=== PATIENT | male | born 1970 | race Caucasian/White ===

== ENCOUNTER 2019-10-26 11:27 | Emergency (ER) | payer OTHER ==
[2019-10-26] MEDS ORDERED: MORPHINE SULFATE 10 MG/ML INJ IV ONE (11:40)
[2019-10-26] MEDS ORDERED: ONDANSETRON HCL INJ/PF 4 MG/2 ML SDV IV ONE (11:40)
--- NOTE | 2019-10-26 11:43 | ER Document Report ---
ED Medical Screen (RME) - General Chief Complaint: Back Pain Stated Complaint: LIGHTHEADED,NAUSEA Time Seen by Provider: 10/26/19 11:40 Notes: Patient is a 48-year-old male history of colorectal cancer with a colostomy bag presents to the emergency department for left flank and left upper quadrant pain. States this started approximately 5:00 this morning. Patient voices he is also very nauseated. States he has no history of kidney stones, is denying any dysuria lower abdominal pain or testicular pain. GENERAL: Alert, interacts well. ABDOMEN: Soft, slight tenderness left upper quadrant. Colostomy bag right lower quadrant. Non-distended. Bowel sounds present in all 4 quadrants. BACK: no cervical, thoracic, lumbar midline tenderness. No saddle anesthesia, normal distal neurovascular exam. Left CVA tenderness noted. I have greeted and performed a rapid initial assessment of this patient. A comprehensive ED assessment and evaluation of the patient, analysis of test results and completion of the medical decision making process will be conducted by additional ED providers. I have specifically instructed the patient or family members with the patient to immediately return to any nursing staff should anything change in the patient's condition or with their chief complaint. This medical record was dictated with voice recognizing software. There may be grammatical, syntax errors that are unintended. TRAVEL OUTSIDE OF THE [place] IN LAST 30 DAYS: No - Related Data Allergies/Adverse Reactions: No Known Allergies Allergy (Verified 10/26/19 11:36) Physical Exam - Vital signs Vitals: Pulse BP Pulse Ox 61 105/60 100 10/26/19 11:31 10/26/19 11:31 10/26/19 11:31 Course - Vital Signs Vital signs: Temp Pulse Resp BP Pulse Ox 61 105/60 100 10/26/19 11:31 10/26/19 11:31 10/26/19 11:31
--- NOTE | 2019-10-26 12:18 | ER Document Report ---
ED GI/ - General Chief Complaint: Back Pain Stated Complaint: LIGHTHEADED,NAUSEA Time Seen by Provider: 10/26/19 11:40 Primary Care Provider: HUGO HOUGH MD [Primary Care Provider] - Follow up as needed Notes: Patient is a 48-year-old male with a history of colorectal cancer who presents to the emergency department with a chief complaint of left flank and left upper quadrant pain. Patient reports this was an acute onset around 5 AM this morning. Patient reports he does have a ileostomy bag due to colorectal cancer. Reports that he did finish chemo on October 13. Patient reports extreme nausea without vomiting. Patient reports he is not having any urinary symptoms. Patient denies fever. Patient states that the left upper quadrant pain is nonradiating. Patient states that he has not had any pain like this in the past. TRAVEL OUTSIDE OF THE [place] IN LAST 30 DAYS: No - Related Data Allergies/Adverse Reactions: No Known Allergies Allergy (Verified 10/26/19 11:36) Past Medical History - General Information source: Patient, Relative - Social History Smoking Status: Never Smoker Lives with: Spouse/Significant other Family History: None Patient has suicidal ideation: No Patient has homicidal ideation: No - Past Medical History Cardiac Medical History: Reports: None Pulmonary Medical History: Reports: None EENT Medical History: Reports: None Neurological Medical History: Reports: None Endocrine Medical History: Reports: None Renal/ Medical History: Reports: None Malignancy Medical History: Reports Other - Colorectal CA - finished Chemo tx. October 13 GI Medical History: Reports: None Musculoskeletal Medical History: Reports None Skin Medical History: Reports None Psychiatric Medical History: Reports: None Traumatic Medical History: Reports: None Infectious Medical History: Reports: None Past Surgical History: Reports: Other - Ileostomy RLQ Review of Systems - Review of Systems Constitutional: No symptoms reported EENT: No symptoms reported Cardiovascular: No symptoms reported Respiratory: No symptoms reported Gastrointestinal: See HPI Genitourinary: No symptoms reported Male Genitourinary: No symptoms reported Musculoskeletal: No symptoms reported Skin: No symptoms reported Hematologic/Lymphatic: No symptoms reported Neurological/Psychological: No symptoms reported Physical Exam - Vital signs Vitals: Pulse BP Pulse Ox 61 105/60 100 10/26/19 11:31 10/26/19 11:31 10/26/19 11:31 - Notes Notes: GENERAL: Ill-appearing, acute distress r/t pain as reported by patient. HEAD: Atraumatic, normocephalic. EYES: Pupils equal round and reactive to light, extraocular movements intact, s clera anicteric, conjunctiva are normal. ENT: Nares patent, oropharynx clear without exudates. Moist mucous membranes. NECK: Normal range of motion, supple without lymphadenopathy or JVD. LUNGS: Breath sounds clear to auscultation bilaterally and equal. No wheezes rales or rhonchi. HEART: Regular rate and rhythm without murmurs, rubs or gallops. ABDOMEN: Soft, LUQ tenderness, normoactive bowel sounds, Ileostomy located in the RLQ. No guarding, no rebound. No masses appreciated. BACK: No cervical, thoracic, lumbar midline tenderness. No saddle anesthesia, normal distal neurovascular exam. GENITOURINARY: Deferred. EXTREMITIES: Normal range of motion, no pitting or edema. No clubbing or c yanosis. NEUROLOGICAL: Cranial nerves II through XII grossly intact. Normal speech. PSYCH: Normal mood, normal affect. SKIN: Warm, Dry, normal turgor, no rashes or lesions noted. Course - Re-evaluation Re-evalutation: 10/26/19 12:17 Appropriate lab work has been ordered in triage. Pain and nausea medications also given. Due to the patient's complaint of left upper quadrant pain and left flank pain will obtain a CT abdomen and pelvis with IV contrast. reports that the patient's primary care physician and oncologist is with [facility]. 10/26/19 14:27 Upon reevaluation patient is resting comfortably in the supine position on the stretcher. Patient reports that the morphine did help with his discomfort and he is not currently having any pain. Patient states he has not been able to urinate as he has not had anything to eat or drink since 5 AM. We will give a dose of IV fluids. Results of the CT scan are pending. 10/26/19 14:[address] the abdomen did show that he had a tiny calculus in the left UPJ. Will give p.o. potassium for his hypokalemia. Patient reports he does have a history of low potassium but does not currently take any medication for this or supplementation. Patient reports he is limited to his diet so he feels like he may be lacking the nutrients through his foods that contain potassium. Patient denies vomiting or diarrhea. Will give IV fluids and check a urinalysis to rule out infection. The rest of the patient's CT was normal. 10/26/19 17:09 Patient's urinalysis was unremarkable. Patient is resting comfortably on stretcher no acute distress. Patient has not had any nausea or vomiting since receiving medication earlier in the afternoon. Plan is to discharge patient with close follow-up with his primary care physician at [facility] and urology. I did inform the patient and significant other that it is vitally follow-up with urology. 10/26/19 17:51 Patient vital signs stable at discharge. Patient tolerating p.o. 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 Patient verbalized understanding. - Vital Signs Vital signs: Temp Pulse Resp BP Pulse Ox 97.9 F 61 21 H 116/71 96 10/26/19 17:30 10/26/19 11:31 10/26/19 17:30 10/26/19 17:30 10/26/19 17:30 - Laboratory Result Diagrams: 10/26/19 12:15 10/26/19 12:15 Laboratory results interpreted by me: 10/26/19 10/26/19 10/26/19 12:15 12:15 16:00 WBC 3.4 L RBC 4.11 L Hgb 13.1 L Hct 37.6 L RDW 20.1 H Band Neutrophils % 1 L Lymphocytes % (Manual) 11 L Monocytes % (Manual) 23 H Abs Lymphs (Manual) 0.4 L Sodium 136.4 L Potassium 3.1 L Carbon Dioxide 17 L Glucose 129 H Alkaline Phosphatase 171 H Lipase 403.1 H Urine Protein 30 H Urine Blood LARGE H - Diagnostic Test Radiology reviewed: Reports reviewed Radiology results interpreted by me: 10/26/19 14:30 Abdomen/Pelvis CT 10/26/19 12:17 IMPRESSION: There is a tiny calculus at the left UPJ. There is no hydronephrosis. Discharge - Discharge Clinical Impression: Hypokalemia, Ureteropelvic junction calculus, Nausea Condition: Stable Disposition: HOME, SELF-CARE Additional Instructions: *Today you are seen in the emergency department for left flank pain. It was found that you do have a small calculus in the left upper ureter. At this time there is no obstruction or infection. You do need to follow-up with urology at [facility], please call them on Wednesday. Would also follow-up with your primary care physician. Please return to the emergency department if you develop high fever, inability to pass your urine or any new or worsening symptoms. *Was also noted that your potassium was slightly low at 3.1. We have given you medication for this. You may also want to incorporate foods that are high in potassium such as fruits, fresh vegetables, orange juice, milk and foods that have been listed below. To seek medical attention if you get severe muscle weakness, muscle twitching, cramping, palpitations or irregular heartbeat. Kidney Stone You are passing or have passed a kidney stone. These stones are usually due to increased calcium or uric acid concentrations in your urine. Stones within the kidney itself are not painful. The pain occurs as the stone leaves the kidney to pass down the long tube, called the ureter, leading to the bladder. If the stone is small, it will usually pass by itself. Most patients can pass the stone at home. You will usually receive medications for pain, nausea or vomiting, and sometimes a medication to assist in passing the kidney stone. However, if the pain is very severe or if vomiting prevents you from taking oral pain medications, you may need to return for further treatment. Drink three or four quarts of fluids per day. You will be given pain medication (if needed) and urine strainers. Strain all your urine to see if the stone passes. If your doctor has asked you to bring the stone in for analysis, return with the stone once it has passed. Return if pain or vomiting become severe, if you develop a high fever, if you are unable to pass your urine, or if other unusual symptoms occur. Hypokalemia You have an abnormally decreased level of serum potassium. Hypokalemia may cause weakness, fatigue, or heart rhythm abnormalities. Sometimes there are no symptoms at all. Usually, low serum potassium is due to taking diuretics (water pills). It can also be due to excessive vomiting or diarrhea. If no obvious cause is evident, further evaluation will be necessary. Treatment is usually oral potassium supplements. Take these exactly as prescribed. You may also want to select foods which are naturally high in potassium -- fruits (such as bananas, cantaloupe, grapes, oranges, prunes, tomatoes), fresh vegetables (potatoes, spinach, beans, peas), orange or tomato juice, tomato pasta sauce, milk, fish (halibut, tuna, salmon, ulis) A follow-up blood test is usually performed to assure that the potassium is returning to normal. Call the physician if you suffer severe weakness, muscle twitching or cramping, palpitations (pounding or irregular heartbeat), or any other new or alarming symptoms. Prescriptions: Ketorolac Tromethamine [Toradol 10 mg Tablet] 10 mg PO Q8HP PRN #21 tablet PRN Reason: Tamsulosin HCl [Flomax 0.4 mg Cap.sr] 0.4 mg PO DAILY #7 cap.sr.24h Referrals: HUGO HOUGH MD [Primary Care Provider] - Follow up as needed
[2019-10-26 12:44] LABS: HEMATOCRIT 37.6 % (37.9-51.0); HEMOGLOBIN 13.1 g/dL (13.5-17.0); MEAN CORPUSCULAR HEMOGLOBIN 31.8 pg (27.0-33.4); MEAN CORPUSCULAR HGB CONC 34.8 g/dL (32.0-36.0); MEAN CORPUSCULAR VOLUME 92 fl (80-97); PLATELET COUNT 188 10^3/uL (150-450); RED BLOOD COUNT 4.11 10^6/uL (4.35-5.55); RED CELL DISTRIBUTION WIDTH 20.1 % (11.5-14.0); WHITE BLOOD COUNT 3.4 10^3/uL (4.0-10.5)
[2019-10-26 13:02] LABS: ALBUMIN 3.7 g/dL (3.5-5.0); ALKALINE PHOSPHATASE 171 U/L (38-126); ANION GAP 12 (5-19); ASPARTATE AMINO TRANSFERASE 45 U/L (17-59); BILIRUBIN,DIRECT 0.1 mg/dL (0.0-0.4); BILIRUBIN,TOTAL 0.7 mg/dL (0.2-1.3); BLOOD UREA NITROGEN 11 mg/dL (7-20); CALCIUM 8.9 mg/dL (8.4-10.2); CARBON DIOXIDE 17 mmol/L (22-30); CHLORIDE 107 mmol/L (98-107); GLUCOSE 129 mg/dL (75-110); POTASSIUM 3.1 mmol/L (3.6-5.0); TOTAL PROTEIN 6.8 g/dL (6.3-8.2)
[2019-10-26 13:07] LABS: ABSOLUTE LYMPHOCYTES# (MANUAL) 0.4 10^3/uL (0.5-4.7); ABSOLUTE MONOCYTES # (MANUAL) 0.8 10^3/uL (0.1-1.4); BAND NEUTROPHILS % (MANUAL) 1 % (3-5); BASOPHILS % (MANUAL) 1 % (0-2); EOSINOPHILS % (MANUAL) 1 % (0-6); LYMPHOCYTES % (MANUAL) 11 % (13-45); MONOCYTES % (MANUAL) 23 % (3-13); SEGMENTED NEUTROPHILS % (MAN) 62 % (42-78); TOTAL CELLS COUNTED 100
[2019-10-26 13:08] LABS: ANISOCYTOSIS 2+; PLATELET CLUMPS PRESENT; PLATELET COMMENT ADEQUATE; POLYCHROMASIA SLIGHT; TOXIC GRANULATION SLIGHT; TOXIC VACUOLATION PRESENT
--- NOTE | 2019-10-26 14:23 | RADIOLOGY REPORT (SQ) ---
EXAM DESCRIPTION: CT ABD/PELVIS WITH IV ONLY COMPLETED DATE/TIME: 10/26/2019 1:59 pm REASON FOR STUDY: LUQ pain, Left flank pain, hx. colorectal CA COMPARISON: None. TECHNIQUE: CT scan of the abdomen and pelvis performed using helical scanning technique with dynamic intravenous contrast injection. A small amount of oral contrast is present in the ascending colon a nd transverse colonc. Images reviewed with lung, soft tissue, and bone windows. Reconstructed coronal and sagittal MPR images reviewed. Delayed images for evaluation of the urinary system also acquired. All images stored on PACS. All CT scanners at this facility use dose modulation, iterative reconstruction, and/or weight based d osing when appropriate to reduce radiation dose to as low as reasonably achievable (ALARA). [facility]: Dose Right [facility]: CareDose [facility]: Dose Right [facility]: Teradose 4D [facility]: [employer] CONTRAST TYPE AND DOSE: contrast/concentration: Isovue 350.00 mg/ml; Total Contrast Delivered: 72.0 ml; Total Saline Delivered: 45.0 ml RENAL FUNCTION: BUN 11 creatinine 0.91 RADIATION DOSE: CT Rad equipment meets quality standard of care and radiation dose reduction techniq ues were employed. CTDIvol: 17.1 - 20.3 mGy. DLP: 2293 mGy-cm.. LIMITATIONS: None. FINDINGS: LOWER CHEST: No significant findings. No nodules or infiltrates. LIVER: Normal size. No masses. No dilated ducts. SPLEEN: Normal size. No focal lesions. PANCREAS: No masses. No significant calcifications. No adjacent inflammation or peripancreatic fluid collections. Pancreatic duct not dilated. GALLBLADDER: No identified stones by CT criteria. No inflammatory changes to suggest cholecystitis. ADRENAL GLANDS: No significant masses or asymmetry. RIGHT KIDNEY AND URETER: No solid masses. No significant calcifications. No hydronephrosis or hyd roureter. LEFT KIDNEY AND URETER: No solid masses. There is a tiny calculus at the UPJ. No hydronephrosis o r hydroureter. AORTA AND VESSELS: No aneurysm. No dissection. Renal arteries, SMA, celiac without stenosis. RETROPERITONEUM: No retroperitoneal adenopathy, hemorrhage or masses. BOWEL AND PERITONEAL CAVITY: An ostomy is present on the right. Radiopaque suture is seen in the rec tang. No obvious bowel mass. No inflammatory changes. APPENDIX: Not identified. PELVIS: No mass. No free fluid. Normal bladder. ABDOMINAL WALL: An ostomy is present on the right. BONES: No significant or acute findings. OTHER: No other significant finding. IMPRESSION: There is a tiny calculus at the left UPJ. There is no hydronephrosis. TECHNICAL DOCUMENTATION: JOB ID: [id number] Quality ID # [id number]: Final reports with documentation of one or more dose reduction techniques (e.g., Au tomated exposure control, adjustment of the mA and/or kV according to patient size, use of iterative reconstruction technique) 2010 [employer]- All Rights Reserved Reading location - IP/workstation name: [email or web address]
[2019-10-26] MEDS ORDERED: NORMAL SALINE 500 ML IV ONE (14:26)
[2019-10-26] MEDS ORDERED: POTASSIUM CHLORIDE 10 MEQ TABLET.ER PO ONE (14:31)
[2019-10-26] MEDS ORDERED: POTASSIUM CHLORIDE 20 MEQ PACKET PO ONE (14:38)
[2019-10-26] MEDS ORDERED: KETOROLAC TROMETHAMINE INJ/PF 30 MG/1 ML SDV IV ONE (14:41)
[2019-10-26 16:34] LABS: APPEARANCE,URINE SLIGHTLY-CLOUDY; BILIRUBIN,URINE NEGATIVE (NEGATIVE); COLOR,URINE YELLOW; GLUCOSE, URINE NEGATIVE (NEGATIVE); KETONES,URINE NEGATIVE (NEGATIVE); LEUKOCYTE ESTERASE,URINE NEGATIVE (NEGATIVE); NITRITE,URINE NEGATIVE (NEGATIVE); PROTEIN,URINE 30 mg/dL (NEGATIVE); URINE SPECIFIC GRAVITY 1.039; UROBILINOGEN,URINE NEGATIVE mg/dL (<2.0)
[2019-10-26] MEDS ORDERED: HYDROCODONE/ACETAMINOPHEN 5-325 MG (6 TAB/ER DISP) PO PRN (17:14)
[2019-10-26 17:41] VITALS: BP 116/71
== END 2019-10-26 17:45 | disposition home or self-care (01) ==
LOC: ER 11:27
DX: N20.1 Calculus of ureter (principal); E87.6 Hypokalemia; R11.0 Nausea; R10.12 Left upper quadrant pain; Z93.2 Ileostomy status; Z85.038 Personal history of other malignant neoplasm of large intestine
CPT/HCPCS: 36591; 99284; 96361; 96374; 96375; 36415; 83690; 85025; 80053; 81001; 74177; J1885; J2270; J2405; J7040; J3490; J1642